=== PATIENT | male | born 1970 | race African-American/Black ===

== ENCOUNTER 2017-09-29 08:29 | Day surgery (SDC) | payer OTHER ==
[2017-09-28 11:16] VITALS: BMI 38.5
[~2017-09-29 08:29] MED LIST: BUPIVACAINE HCL/PF 0.25% (2.5MG/ML) 10 ML VIAL IJ ONE; methylPREDNISolone ACET (DEPO) 40 MG/1 ML VIAL IM ONE; oxyCODONE HCL 10 MG SUSTAINED ACTING TABLET PO ONE
[2017-09-29] MEDS ORDERED: ALBUTEROL SO4 0.083% IH SOL 2.5 MG/3 ML VIAL.NEB. NEB ONE (09:30)
[2017-09-29] MEDS ORDERED: LIDOCAINE 1%/EPI 1:100000 (20 ML MULTI DOSE VIAL) ONE (10:03)
[2017-09-29] MEDS ORDERED: THROMBIN (BOVINE) 5,000 UNIT VIAL TP ONE ×2 (10:03→12:29)
[2017-09-29] MEDS ORDERED: methylPREDNISolone ACET (DEPO) 40 MG/1 ML VIAL ONE (10:03)
[2017-09-29] MEDS ORDERED: BUPIVACAINE HCL/PF 2.5 MG/ML - 30 ML VIAL IJ ONE (10:03)
[2017-09-29] MEDS ORDERED: MIDAZOLAM HCL 2 MG/2 ML SINGLE DOSE VIAL ONE ×2 (11:28→11:55)
[2017-09-29] MEDS ORDERED: BUPIVACAINE HCL/PF 0.5% (5MG/ML) 10 ML VIAL ONE (11:28)
--- NOTE | 2017-09-29 11:38 | HP ---
History & Physical Update - History History: No Change - Physical Physical: No Change - Assessment Assessment: No Change - Plan Plan: No Change
[2017-09-29] MEDS ORDERED: LIDOCAINE 1%/EPI 1:100000 (50 ML MULTI DOSE VIAL) INF ONE (12:00)
[2017-09-29] MEDS ORDERED: ONDANSETRON 4 MG/2 ML VIAL ONE (12:04)
[2017-09-29] MEDS ORDERED: DEXAMETHASONE SOD PHOSPHATE 4 MG/1 ML VIAL ONE (12:04)
[2017-09-29] MEDS ORDERED: CLINDAMYCIN PHOSPHATE 600 MG/4 ML VIAL ONE (12:04)
[2017-09-29] MEDS ORDERED: GELATIN SPONGE,ABSORBABLE 1 GM PACKET TP ONE (12:29)
[2017-09-29] MEDS ORDERED: methylPREDNISolone ACET (DEPO) 40 MG/1 ML VIAL IM ONE (13:33)
[2017-09-29] MEDS ORDERED: BUPIVACAINE HCL/PF 0.25% (2.5MG/ML) 10 ML VIAL IJ ONE (13:51)
--- NOTE | 2017-09-29 14:37 | OP ---
Operative Note - Note: Operative Date: 09/29/17 Pre-Operative Diagnosis: L4-S1 spinal stenosis Operation: L4-S1 laminectomy Surgeon: Ashish Falcon Mechanic Insulator: Susy Low Anesthesiologist/LOADING UNIT OPERATOR: Ting Parr Anesthesia: Spinal Specimens Removed: L5-S1 disc Estimated Blood Loss (mls): 30 Fluid Volume Replaced (mls): 900 Operative Report Dictated: Yes
--- NOTE | 2017-09-29 14:39 | SURG ---
Surgery Suction Operator Note Suction Operator: Susy Low PA-C Date of Service: 09/29/17 Diagnosis: L4-S1 spinal stenosis Procedure: L4-S1 laminectomy I was present for the entirety of the operative procedure. For further detail, please refer to operative report. Visit type - Case Type Case Type: Scheduled Admission - Emergency Emergency Visit: No - New patient This patient is new to me today: Yes Date on this admission: 09/29/17
[2017-09-29] MEDS ORDERED: oxyCODONE HCL 5 MG TABLET ONE ×2 (15:24→16:06)
[2017-09-29] MEDS ORDERED: oxyCODONE HCL 5 MG TABLET PO PRN ×2 (15:38)
[2017-09-29] MEDS ORDERED: ONDANSETRON 4 MG/2 ML VIAL IVPUSH PRN (15:38)
[2017-09-29] MEDS ORDERED: oxyCODONE HCL 5 MG TABLET PO ONE (15:40)
[2017-09-29] MEDS ORDERED: LACTATED RINGERS SOLUTION 1,000 ML IV SCH (15:45)
[2017-09-29 17:00] VITALS: BP 135/78; PULSE 65
[2017-09-29 17:01] VITALS: TEMP 98.1
--- NOTE | 2017-09-30 07:29 | OP ---
DATE OF OPERATION: 09/29/2017 PREOPERATIVE DIAGNOSIS: Spinal stenosis L4-L5 and L5-S1. POSTOPERATIVE DIAGNOSIS: Spinal stenosis L4-L5 and L5-S1. PROCEDURE PERFORMED: Laminectomy L4-L5 and L5-S1. SURGEON: Ashish Falcon MD PAINT PROCESS ENGINEER: CHAUNCEY Chery ESTIMATED BLOOD LOSS: 50 mL. INTRAVENOUS FLUIDS: Per Anesthesia. ANESTHESIA: Spinal. COMPLICATIONS: None. DISPOSITION: The patient was brought to the PACU in stable condition. INDICATIONS FOR SURGERY: The patient is a 46-year-old gentleman who has been suffering from pain from his back down his leg. X-rays and MRI were completed, which showed that he had spinal stenosis from L5 to S1. He had gone through an exhaustive course of treatment for this, which included medications, physical therapy as well as injections. Unfortunately, his pain continued to persist despite of all this. At this point, the risks, benefits and alternatives were discussed, and the patient consented to surgery. DESCRIPTION OF PROCEDURE: The patient was brought to the operating room by the Anesthesia staff. After appropriate patient identification was performed, spinal anesthesia was given. Appropriate anesthetic lines were placed and SCDs were placed on the patient. The patient was able to position himself prone onto the [place] frame, with all areas of bony prominences well-padded at this time. Two needles were placed into his back to jony off the L4 and S1 segments. An x-ray was taken to confirm that needles were removed and 10 mL of lidocaine with epinephrine was injected into his back at this time. His back was prepped and draped in the usual sterile manner. At this point, a time-out was completed. An incision was made from the top of L4 down to the bottom of S1. Dissection was carried down to the fascia. The fascia was then split open at this time and appropriate retractors were placed in. A spinal needle was placed onto the L4 lamina to jony off the L4-L5 level, and x-ray was taken to confirm that. The needle was removed. The microscope was brought in. At this point the L4-L5 and L5-S1 interspinous ligament was removed. The spinous process of L5 was removed. A bur was used to remove the lamina of L5. A complete decompression was performed, such that by the end of the procedure the L5 nerve root and S1 nerve root appeared to be well decompressed. All bleeding was well controlled at this time. Steroid was placed over the nerve root. FloSeal was placed over that. The fascia was closed with number 1 Vicryl suture. The subcutaneous tissue was closed with 2-0 Vicryl suture. The skin was closed with 3-0 Monocryl suture. Dermabond was applied. Steri-Strips were applied. A sterile dressing was applied. The patient was placed supine on the OR bed, and brought to the PACU in stable condition. Enrico [id number]
== END 2017-09-29 16:35 | disposition home or self-care (01) ==
LOC: FASU 08:29
PROVIDERS: ATTEND Orthopaedic Surgery Orthopaedic Surgery of the Spine
PROC: 01NB0ZZ Release Lumbar Nerve, Open Approach (ICD-10-PCS; principal; 2017-09-29 12:15)
DX: M48.061 Spinal stenosis, lumbar region without neurogenic claudication (principal); M48.07 Spinal stenosis, lumbosacral region
CPT/HCPCS: 72100-TC; 76000-TC; 94640